=== PATIENT | male | born 1945 | race Caucasian/White ===

== ENCOUNTER 2022-10-07 08:58 | Emergency (ER) | payer OTHER ==
--- NOTE | 2022-10-07 09:23 | EDPHYS ---
Physician Documentation [facility] Name: Frank Morris Age: 77 yrs Sex: Male : 1945 Arrival Date: 10/07/2022 Time: 08:58 Bed IW6 Private MD: ED Physician Ronny Sanchez HPI: 10/07 09:12 This 77 yrs old Male presents to ER via Unassigned with complaints of Suture Removal. kb 09:12 The patient has The patient has sutures on the left mg. Previous treatment: The patient was initially treated on September 19, 2022, the care was rendered at [facility], Treatment type: The patient's original treatment included sutures. Sutures/zak progress: The patient has no c/o's. The wound is well-healing with no redness, swelling, discharge, or dehiscence reported. The patient has not experienced similar symptoms in the past. The patient has been recently seen by a physician:. Historical: - Allergies: 09:19 Sulfa (Sulfonamide Antibiotics); ll1 - PMHx: 09:19 Hypercholesterolemia; Hypertensive disorder; Hypothyroidism; seasonal allergies; ll1 - PSHx: 09:19 Right eye sx; ll1 - Immunization history:: Adult Immunizations up to date. - Social history:: Smoking status: Patient denies any tobacco usage or history of. ROS: 09:12 Constitutional: Negative for fever, chills, and weight loss. kb 09:12 Skin: Positive for laceration(s), of the left mg, sutures in place. 09:12 All other systems are negative. Exam: 09:12 Constitutional: This is a well developed, well nourished patient who is awake, alert, kb and in no acute distress. Head/Face: Normocephalic, atraumatic. ENT: Moist Mucous membranes Cardiovascular: Regular rate and rhythm with a normal S1 and S2. No gallops, murmurs, or rubs. No pulse deficits. Respiratory: Respirations even and unlabored. No increased work of breathing. Talking in full sentences MS/ Extremity: Pulses equal, no cyanosis. Neurovascular intact. Full, normal range of motion. Neuro: Awake and alert, GCS 15, oriented to person, place, time, and situation. Moves all extremities. Normal gait. 09:12 Skin: Wound recheck: Suture laceration closure: the wound is healing well, the edges are well approximated, no evidence of dehiscence, no drainage, no erythema, no swelling. Procedures: 09:12 Suture/Staple removal: Removed 8 sutures, from left mg, site appears well healed, kb Patient tolerated well. MDM: 09:07 Patient medically screened. kb 09:12 Data reviewed: vital signs, nurses notes. Counseling: I had a detailed discussion with kb the patient and/or guardian regarding: the historical points, exam findings, and any diagnostic results supporting the discharge/admit diagnosis, the need for outpatient follow up, a family practitioner, to return to the emergency department if symptoms worsen or persist or if there are any questions or concerns that arise at home. Administered Medications: No medications were administered Disposition: 11:02 Co-signature as Attending Physician, Ronny Sanchez MD I reviewed the patient's care rn provided by the Advanced Practice Provider and agree with the diagnosis and treatment plan. Disposition Summary: 10/07/22 09:23 Discharge Ordered Location: Home Condition: Stable kb Diagnosis - Encounter for removal of sutures kb Followup: kb - With: Emergency Department - When: As needed - Reason: Worsening of condition Followup: kb - With: Private Physician - When: 2 - 3 days - Reason: Recheck today's complaints, Continuance of care, Re-evaluation by your physician Discharge Instructions: - Discharge Summary Sheet kb - Suture Removal, Care After kb Forms: - Medication Reconciliation Form kb - Thank You Letter kb - Antibiotic Education kb - Prescription Opioid Use kb Signatures: Mary Hermosillo, CHIKIS-C SORTING MACHINE OPERATOR-Ronny Strickland MD MD rn Lewis, Lynsay, RN RN ll1
--- NOTE | 2022-10-07 09:23 | ER ---
Nurse's Notes [facility] Name: Frnak Morris Age: 77 yrs Sex: Male : 1945 Arrival Date: 10/07/2022 Time: 08:58 Bed IW6 Private MD: Diagnosis: Encounter for removal of sutures Presentation: 10/07 09:20 Chief complaint: Patient states: Needs stitches removed from L leg. Coronavirus screen: ll1 Client denies travel out of the [place] in the last 14 days. At this time, the client does not indicate any symptoms associated with coronavirus-19. Ebola Screen: Patient denies travel to an Ebola-affected area in the 21 days before illness onset. Initial Sepsis Screen: Does the patient meet any 2 criteria? No. Patient's initial sepsis screen is negative. Does the patient have a suspected source of infection? No. Patient's initial sepsis screen is negative. Risk Assessment: Do you want to hurt yourself or someone else? Patient reports no desire to harm self or others. Onset of symptoms is unknown. 09:20 Method Of Arrival: Ambulatory ll1 09:20 Acuity: LION 5 ll1 Historical: - Allergies: 09:19 Sulfa (Sulfonamide Antibiotics); ll1 - PMHx: 09:19 Hypercholesterolemia; Hypertensive disorder; Hypothyroidism; seasonal allergies; ll1 - PSHx: 09:19 Right eye sx; ll1 - Immunization history:: Adult Immunizations up to date. - Social history:: Smoking status: Patient denies any tobacco usage or history of. ED Course: 09:00 Patient arrived in ED. rg4 09:06 Mary Hermosillo FNP-C is [facility]. kb 09:06 Ronyn Sanchez MD is Attending Physician. kb 09:20 Triage completed. ll1 09:20 Arm band placed on Patient Seen by Mary RODRIGUEZ. ll1 Administered Medications: No medications were administered Outcome: :23 Discharge ordered by . kb 09:27 Patient left the ED. ll1 Signatures: Mary Hermosillo FNP-C FNP-Ckb Garcia, Rubi rg4 Alexandre Hubbard RN RN ll1
== END 2022-10-07 09:27 | disposition home or self-care (01) ==
LOC: ER 08:58
DX: Z48.02 Encounter for removal of sutures (principal)
CPT/HCPCS: 99281